=== PATIENT | male | born 1985 | race Caucasian/White ===

== ENCOUNTER → 2016-06-05 | Outpatient (CLI) | payer BC ==
[2016-06-05 07:49] LABS: BASOPHILS % 0.3 % (0.0-2.0); EOSINOPHILS % 0.8 % (0.0-5.0); HEMATOCRIT. 42.3 % (42.0-52.0); HEMOGLOBIN. 14.1 g/dL (14.0-18.0); LYMPHOCYTES % 37.9 % (20.0-50.0); MEAN CORPUSCULAR HEMOGLOBIN 28.7 pg (28.0-32.0); MEAN CORPUSCULAR HGB CONC 33.2 g/dL (31.0-37.0); MEAN CORPUSCULAR VOLUME 86.3 fL (80.0-94.0); MEAN PLATELET VOLUME 8.2 fl (7.4-10.4); PLATELET 168 x1000/uL (130-400); RED BLOOD CELL COUNT 4.91 mill/uL (4.7-6.1); RED CELL DISTRIBUTION WIDTH 14.2 % (11.6-14.6); WHITE BLOOD COUNT 6.7 x1000/uL (4.5-11.0)
[2016-06-05 08:21] LABS: GLUCOSE URINE NEGATIVE (NEGATIVE); KETONES URINE NEGATIVE (NEGATIVE); LEUKOCYTE ESTERASE URINE NEGATIVE (NEGATIVE); NITRITE URINE NEGATIVE (NEGATIVE); OCCULT BLOOD URINE NEGATIVE (NEGATIVE); PROTEIN URINE NEGATIVE (NEGATIVE); SPECIFIC GRAVITY URINE 1.024 (1.005-1.030); UROBILINOGEN URINE 0.2 E.U./dL (0.2-1.0)
[2016-06-05 08:24] LABS: ALANINE AMINOTRANSFERASE 32 IU/L (13-61); ALBUMIN 3.9 g/dL (3.4-5.0); ANION GAP 14; CALCIUM 8.7 mg/dL (8.5-10.1); CARBON DIOXIDE 27 mEq/L (21-32); CHLORIDE 107 mEq/L (98-107); CLARITY URINE CLEAR (CLEAR); COLOR URINE YELLOW (YELLOW); INDEX HEMOLYSI 1 (1-3); INDEX ICTERIC 1 (1-4); INDEX LIPEMIC 1 (1-3); IRON 75 ug/dL (50-175); LDL CHOLESTEROL 108 mg/dL (5-100); TOTAL IRON BINDING CAPACITY 394 ug/dL (250-450); TRIGLYCERIDE 95 mg/dL (0-150); UREA NITROGEN BLOOD 20 mg/dL (7-21)
[2016-06-05 08:32] LABS: HDL CHOLESTEROL 55 mg/dL (40-59); eGFR > 60 mL/min (>60)
[2016-06-05 17:02] LABS: FOLIC ACID (FOLATE) SERUM 16.3 ng/mL (>5.38)
== END | disposition home or self-care (01) ==
LOC: LAB 07:05
PROVIDERS: ATTEND Internal Medicine Geriatric Medicine
DX: Z00.00 Encounter for general adult medical examination without abnormal findings (principal)
CPT/HCPCS: 36415; 80053; 80061; 81003; 82306; 82607; 82728; 82746; 83036; 83540; 83550; 84443; 85025; 86592; 87086; 87338

== ENCOUNTER 2016-06-24 15:13 | Emergency (ER) | payer BC ==
[~2016-06-24] VITALS: Ht 185.4 cm; Wt 91.0 kg
[2016-06-24 15:15] VITALS: BP 120/74
[2016-06-24 16:14] LABS: CLARITY URINE CLEAR (CLEAR); COLOR URINE YELLOW (YELLOW); GLUCOSE URINE NEGATIVE (NEGATIVE); KETONES URINE NEGATIVE (NEGATIVE); LEUKOCYTE ESTERASE URINE NEGATIVE (NEGATIVE); NITRITE URINE NEGATIVE (NEGATIVE); OCCULT BLOOD URINE NEGATIVE (NEGATIVE); PH URINE 5.5 (4.5-8.0); PROTEIN URINE NEGATIVE (NEGATIVE); SPECIFIC GRAVITY URINE 1.024 (1.005-1.030); UROBILINOGEN URINE 0.2 E.U./dL (0.2-1.0)
== END 2016-06-24 16:41 | disposition home or self-care (01) ==
LOC: ER 15:55
DX: R31.9 Hematuria, unspecified (principal)
CPT/HCPCS: 81003; 99283

== ENCOUNTER 2017-07-06 00:42 | Emergency (ER) | payer BC ==
[~2017-07-06] VITALS: Ht 185.4 cm; Wt 91.0 kg
[2017-07-06 02:26] LABS: CLARITY URINE TURBID (CLEAR); COLOR URINE DARK YELLOW (YELLOW); KETONES URINE TRACE (NEGATIVE); LEUKOCYTE ESTERASE URINE TRACE (NEGATIVE); NITRITE URINE NEGATIVE (NEGATIVE); OCCULT BLOOD URINE 3+ (NEGATIVE); PH URINE 5.5 (4.5-8.0); PROTEIN URINE 1+ (NEGATIVE); SPECIFIC GRAVITY URINE 1.026 (1.005-1.030); UROBILINOGEN URINE 0.2 E.U./dL (0.2-1.0)
[2017-07-06 02:43] LABS: BASOPHILS % 0.7 % (0.0-2.0); EOSINOPHILS % 1.4 % (0.0-5.0); HEMATOCRIT. 41.7 % (42.0-52.0); HEMOGLOBIN. 14.4 g/dL (14.0-18.0); LYMPHOCYTES % 31.6 % (20.0-50.0); MEAN CORPUSCULAR HEMOGLOBIN 29.8 pg (28.0-32.0); MEAN CORPUSCULAR VOLUME 86.4 fL (80.0-94.0); MEAN PLATELET VOLUME 8.4 fl (7.4-10.4); MONOCYTES % 8.7 % (2.0-8.0); NEUTROPHILS % 57.6 % (40.0-76.0); PLATELET 159 x1000/uL (130-400); RED BLOOD CELL COUNT 4.83 mill/uL (4.7-6.1); RED CELL DISTRIBUTION WIDTH 13.8 % (11.6-14.6)
[2017-07-06 02:49] LABS: CHLORIDE 106 mEq/L (98-107)
[2017-07-06 02:52] LABS: INR 1.1; PROTHROMBIN TIME 11.8 sec (9.4-11.6)
[2017-07-06 02:58] LABS: CREATINE KINASE 159 IU/L (39-308)
[2017-07-06 05:06] VITALS: BP 128/70
== END 2017-07-06 05:10 | disposition home or self-care (01) ==
LOC: ER 00:42
DX: N39.0 Urinary tract infection, site not specified (principal); R31.0 Gross hematuria
CPT/HCPCS: 36415; 80053; 81003; 82550; 83690; 85025; 85610; 87086; 99284

== ENCOUNTER → 2017-07-08 | Outpatient (CLI) | payer BC ==
[2017-07-08 16:10] LABS: CHLORIDE 106 mEq/L (98-107)
[2017-07-08 16:17] LABS: LDL CHOLESTEROL 129 mg/dL (5-100)
[2017-07-08 16:18] LABS: HDL CHOLESTEROL 49 mg/dL (40-59)
== END | disposition home or self-care (01) ==
LOC: US 11:12
PROVIDERS: ATTEND Internal Medicine Geriatric Medicine
DX: R31.9 Hematuria, unspecified (principal); R80.9 Proteinuria, unspecified; R79.89 Other specified abnormal findings of blood chemistry
CPT/HCPCS: 36415; 76770; 80053; 80061; 82570; 83036; 84153

== ENCOUNTER → 2017-07-30 | Outpatient (CLI) | payer BC ==
[2017-07-30 10:46] LABS: CHLORIDE 107 mEq/L (98-107)
[2017-07-30 10:55] LABS: CREATINE KINASE 212 IU/L (39-308)
[2017-07-31 09:08] LABS: ANTI-NUCLEAR ANTIBODIES DIRECT Negative (Negative)
[2017-08-02 13:11] LABS: MYOGLOBIN URINE <2 ng/mL (0-13)
== END | disposition home or self-care (01) ==
LOC: LAB 07-15 10:09
PROVIDERS: ATTEND Internal Medicine Geriatric Medicine
DX: R80.9 Proteinuria, unspecified (principal)
CPT/HCPCS: 36415; 80048; 82550; 85651; 86038

== ENCOUNTER → 2020-08-09 | Outpatient (CLI) | payer BC | END | disposition home or self-care (01) | LOC: MRI 10:40 | PROVIDERS: ATTEND Neurological Surgery | DX: M47.816 Spondylosis without myelopathy or radiculopathy, lumbar region (principal); M51.36 Other intervertebral disc degeneration, lumbar region | CPT/HCPCS: 72148 ==

== ENCOUNTER → 2020-10-23 | Outpatient (CLI) | payer BC ==
[2020-10-23 11:23] LABS: BASOPHILS % 0.6 % (0.0-2.0); EOSINOPHILS % 0.6 % (0.0-5.0); HEMATOCRIT. 44.3 % (42.0-52.0); LYMPHOCYTES % 40.8 % (20.0-50.0); MEAN CORPUSCULAR HEMOGLOBIN 28.7 pg (28.0-32.0); MEAN CORPUSCULAR VOLUME 84.8 fL (80.0-94.0); MEAN PLATELET VOLUME 7.8 fl (7.4-10.4); PLATELET 207 x1000/uL (130-400); RED BLOOD CELL COUNT 5.22 mill/uL (4.7-6.1); RED CELL DISTRIBUTION WIDTH 13.4 % (11.6-14.6)
[2020-10-23 12:08] LABS: CHLORIDE 106 mEq/L (98-107)
[2020-10-23 12:12] LABS: FERRITIN 149 ng/mL (22-322)
[2020-10-23 12:15] LABS: LDL CHOLESTEROL 152 mg/dL (5-100)
[2020-10-23 12:16] LABS: HDL CHOLESTEROL 44 mg/dL (40-59); TOTAL IRON BINDING CAPACITY 431 ug/dL (250-450)
[2020-10-23 12:24] LABS: HEPATITIS B SURFACE ANTIGEN NEGATIVE; VITAMIN B12 SERUM 843 pg/mL (211-911)
[2020-10-23 13:58] LABS: CLARITY URINE CLEAR (CLEAR); COLOR URINE YELLOW (YELLOW); KETONES URINE NEGATIVE (NEGATIVE); LEUKOCYTE ESTERASE URINE NEGATIVE (NEGATIVE); NITRITE URINE NEGATIVE (NEGATIVE); OCCULT BLOOD URINE NEGATIVE (NEGATIVE); PH URINE 6.5 (4.5-8.0); PROTEIN URINE NEGATIVE (NEGATIVE); SPECIFIC GRAVITY URINE 1.007 (1.005-1.030); UROBILINOGEN URINE 0.2 E.U./dL (0.2-1.0)
== END | disposition home or self-care (01) ==
LOC: LAB 09:23
PROVIDERS: ATTEND Internal Medicine Geriatric Medicine
DX: Z12.5 Encounter for screening for malignant neoplasm of prostate (principal); Z00.01 Encounter for general adult medical examination with abnormal findings; N39.0 Urinary tract infection, site not specified; Z11.59 Encounter for screening for other viral diseases; M79.672 Pain in left foot
CPT/HCPCS: 36415; 73630; 80053; 80061; 81003; 82306; 82607; 82728; 82746; 83036; 83540; 83550; 84153; 84443; 85025; 86592; 86705; 86709; 86803; 87340; G0103

== ENCOUNTER → 2020-11-26 | Outpatient (CLI) | payer BC ==
[~2020-11-26] MED LIST: GADOTERATE MEGLUMINE 5 MMOL/10 ML VIAL IV ONE
== END | disposition home or self-care (01) ==
LOC: MRI 07:21
PROVIDERS: ATTEND Podiatrist Foot & Ankle Surgery
DX: M19.072 Primary osteoarthritis, left ankle and foot (principal); G57.62 Lesion of plantar nerve, left lower limb
CPT/HCPCS: 73720; A9577

== ENCOUNTER → 2021-10-10 | Outpatient (CLI) | payer BC ==
[2021-10-10 12:27] LABS: BASOPHILS % 0.6 % (0.0-2.0); EOSINOPHILS % 0.9 % (0.0-5.0); HEMATOCRIT. 41.9 % (42.0-52.0); HEMOGLOBIN. 13.9 g/dL (14.0-18.0); LYMPHOCYTES % 40.4 % (20.0-50.0); MEAN CORPUSCULAR HEMOGLOBIN 28.6 pg (28.0-32.0); MEAN PLATELET VOLUME 7.8 fl (7.4-10.4); MONOCYTES % 7.5 % (2.0-8.0); NEUTROPHILS % 50.6 % (40.0-76.0); PLATELET 198 x1000/uL (130-400); RED BLOOD CELL COUNT 4.87 mill/uL (4.7-6.1); RED CELL DISTRIBUTION WIDTH 13.8 % (11.6-14.6)
[2021-10-10 12:33] LABS: CLARITY URINE CLEAR (CLEAR); COLOR URINE YELLOW (YELLOW); KETONES URINE NEGATIVE (NEGATIVE); LEUKOCYTE ESTERASE URINE NEGATIVE (NEGATIVE); NITRITE URINE NEGATIVE (NEGATIVE); OCCULT BLOOD URINE NEGATIVE (NEGATIVE); PROTEIN URINE NEGATIVE (NEGATIVE)
[2021-10-10 12:36] LABS: CHLORIDE 106 mEq/L (98-107)
[2021-10-10 12:57] LABS: HDL CHOLESTEROL 45 mg/dL (40-59); LDL CHOLESTEROL 133 mg/dL (5-100); T4 FREE 0.97 ng/dL (0.76-1.46)
== END | disposition home or self-care (01) ==
LOC: LAB 12:01
PROVIDERS: ATTEND Specialist
DX: E78.5 Hyperlipidemia, unspecified (principal); E07.9 Disorder of thyroid, unspecified
CPT/HCPCS: 36415; 80048; 80061; 81003; 84439; 84443; 84481; 85025